=== PATIENT | male | born 1955 | race Caucasian/White ===

== ENCOUNTER → 2016-03-25 | Outpatient (CLI) | payer BC | LOC: GMAL 10:42 | PROVIDERS: ATTEND Family Medicine | DX: E03.9 Hypothyroidism, unspecified (principal); R25.8 Other abnormal involuntary movements; Z12.5 Encounter for screening for malignant neoplasm of prostate ==

== ENCOUNTER → 2016-07-22 | Outpatient (CLI) | payer BC | END | disposition home or self-care (01) | LOC: GMAL 10:20 | PROVIDERS: ATTEND Family Medicine | DX: Z00.00 Encounter for general adult medical examination without abnormal findings (principal) ==

== ENCOUNTER → 2016-09-02 | Outpatient (CLI) | payer BC | LOC: GMAL 08:00 | PROVIDERS: ATTEND Family Medicine | DX: D51.3 Other dietary vitamin B12 deficiency anemia (principal); D53.9 Nutritional anemia, unspecified ==

== ENCOUNTER → 2016-09-02 | Outpatient (CLI) | payer BC, SELFPAY ==
--- NOTE | 2016-09-03 09:14 | CT ---
EXAM DESCRIPTION: CT ABDOMEN WITHOUT AND WITH CONTRAST CLINICAL HISTORY: HEPATOSPLENOMEGALY COMPARISON: December 31, 2010. TECHNIQUE: CT of the abdomen is performed prior to and during IV bolus administration of nonionic contrast. Oral contrast enhancement was not utilized MPR reformatted images obtained This exam was performed according to our departmental dose-optimization program, which includes automated exposure control, adjustment of the mA and/or kV according to patient size and/or use of iterative reconstruction technique. FINDINGS: CT of the abdomen only before and after contrast enhancement was performed and correlated with remote prior study. The lung bases are essentially clear but slightly coarsened markings in the left posterior costophrenic angle that is little changed from 2011 study. The spleen is 14 cm in length consistent with moderate splenomegaly but without focal lesion or mass. The liver is 17 cm in length consistent with mild hepatomegaly without focal mass and with little change from prior study. The umbilical vein in the ligamentum teres appears recanalized suggesting the possibility of very subtle changes of increased portal pressure or early cirrhosis of the liver. No ascites is noted. Recanalized portal vein represents a new finding from previous 2011 examination area esophageal or short gastric or spleen no renal of varices are not identified. On contrast enhanced examination the portal vein is patent as well as the hepatic veins. Gallbladder is normally distended without ductal dilation and the pancreas is normal. The kidneys are normal on noncontrast and contrast enhanced examination without hydronephrosis or mass or cyst. Retroperitoneum is normal in appearance with no aortic or vena caval abnormality or adenopathy. A small right-sided umbilical or periumbilical fat-containing hernia is noted and unchanged in retrospect in comparison to prior study. The stomach and small bowel and visualized portions of the large bowel are unremarkable. Modest degenerative changes in the mid lumbar spine are noted. IMPRESSION: 1. Moderate splenomegaly and mild hepatomegaly with mild fatty infiltration of the liver, all unchanged from 2011 study. 2. Recanalized and mildly prominent umbilical vein extending through the ligamentum teres into the umbilicus combined with very subtle irregularity of the liver margin raise the possibility of early changes of portal hypertension and cirrhosis without additional varices or ascites identified. The portal and hepatic veins are patent. No focal masses are noted. 3. Small right-sided fat-containing umbilical or periumbilical hernia, unchanged 2011. Electronically signed by: Beni Craft MD 09/03/2016 9:13 AM CDT
== END | disposition home or self-care (01) ==
LOC: CT 16:00
PROVIDERS: ATTEND Internal Medicine Hematology & Oncology
DX: D51.3 Other dietary vitamin B12 deficiency anemia (principal); D53.9 Nutritional anemia, unspecified

== ENCOUNTER → 2016-10-14 | Outpatient (CLI) | payer BC | END | disposition home or self-care (01) | LOC: GMAL 17:22 | PROVIDERS: ATTEND Family Medicine | DX: D50.8 Other iron deficiency anemias (principal) ==

== ENCOUNTER → 2017-02-10 | Outpatient (CLI) | payer BC | LOC: GMAL 22:53 | PROVIDERS: ATTEND Family Medicine | DX: E03.9 Hypothyroidism, unspecified (principal) ==

== ENCOUNTER → 2017-04-28 | Outpatient (CLI) | payer BC | LOC: GMAL 10:26 | PROVIDERS: ATTEND Family Medicine | DX: Z12.5 Encounter for screening for malignant neoplasm of prostate (principal) ==

== ENCOUNTER → 2017-08-18 | Outpatient (CLI) | payer BC | LOC: GMAL 11:37 | PROVIDERS: ATTEND Family Medicine | DX: D51.3 Other dietary vitamin B12 deficiency anemia (principal); E55.9 Vitamin D deficiency, unspecified ==

== ENCOUNTER 2017-11-14 05:29 | Day surgery (SDC) | payer BC ==
--- NOTE | 2017-10-28 19:50 | SSS ---
CHIEF COMPLAINT: Family history of colon cancer in his brother. HISTORY OF PRESENT ILLNESS: Mr. Mena is a 62 year-old male with type 2 diabetes, hypothyroidism, obstructive sleep apnea, family history of colon cancer in a brother, nephrolithiasis and gastroesophageal reflux disease who presented to my office for routine followup. It was noted that he had a colonoscopy in 2012 and was due for followup given a family history of a brother who had colon cancer diagnosed at age 58. Risks and benefits were discussed and he is agreeable with proceeding. He has no symptoms referable to his bowels, specifically no abdominal pain, changes in his bowel habits or blood in his stool. PAST MEDICAL HISTORY: As above. 1. Nuclear stress test in April 2015 that showed a perfusion defect of anterior wall. His cardiac cath as as above. PAST SURGICAL HISTORY: 1. Appendectomy at age 15. 2. Left rotator cuff surgery. 3. Right knee scope by Dr. Muniz in June 2009. 4. Cardiac catheterization by Dr. Rodriguez that showed distal apical LAD was a small vessel of moderate disease, but otherwise minimal diffuse disease on 07/11/15. 5. Colonoscopy by this physician as above that showed only a hyperplastic polyp in his transverse colon. He had cecal lesion that was biopsied that was "unremarkable colonic mucosa." The cecum was difficult to visualize. CURRENT MEDICATIONS: 1. Trulicity pen. 2. Lipitor. 3. Bumetanide. 4. Metformin. 5. Levothyroxine. 6. Bystolic. 7. Nexium. ALLERGIES: NONE. FAMILY HISTORY: Father at 50 from emphysema. Mother has hypertension with a history of colon polyps. He had 1 brother, Franco, who has reflux, hypertension and history of colon cancer diagnosed at age 58. He has a sister, Oanh, who from a myocardial infarction at 55 and also had hypertension and diabetes. He has 2 sons, Fer and Sandeep, both healthy. SOCIAL HISTORY: He is a maintenance mechanic telephone. His is and has 2 children. He drinks alcohol very infrequently. He does use snuff. REVIEW OF SYSTEMS: Negative except as per History of Present Illness. PHYSICAL EXAMINATION: VITAL SIGNS: Height 5' 9", weight 270. Blood pressure 124/70, pulse 74. GENERAL: He is awake and alert in no acute distress. HEENT: Unremarkable. NECK: Supple. CHEST: Lungs are clear. CARDIOVASCULAR: Regular rate and rhythm. ABDOMEN: Obese but benign. EXTREMITIES: Without edema. RECTAL: Deferred until time of colonoscopy. ASSESSMENT: 1. Family history of colon cancer. PLAN: Coloscopy on 11/03/17. #[id number] [facility]
[2017-11-14] MEDS ORDERED: LACTATED RINGERS 1,000 ML ONE (05:58)
[2017-11-14] MEDS ORDERED: MIDAZOLAM INJ 2 MG/2 ML VIAL ONE (06:36)
[2017-11-14] MEDS ORDERED: fentaNYL CITRATE INJ 50 MCG/ML AMP ONE (06:36)
[2017-11-14] MEDS ORDERED: PROPOFOL 200 MG/20 ML VIAL IV ONE (07:00)
[2017-11-14] MEDS ORDERED: LIDOCAINE 1% 10 ML VIAL INJ ONE (07:00)
[2017-11-14 08:27] VITALS: BP 92/53; TEMP 97.8; O2SAT 94
--- NOTE | 2017-11-14 09:02 | OP ---
DATE OF PROCEDURE: 11/14/17 PREOPERATIVE DIAGNOSIS: 1. History of colonic polyps. POSTOPERATIVE DIAGNOSIS: 1. 0.5 by 0.25 cm proximal transverse colonic polyp, biopsied times 4 to obliteration. 2. Internal hemorrhoids. 3. Prominent ileocecal valve. PROCEDURE: 1. Colonoscopy. SURGEON: Troy Gold MD. ESTIMATED BLOOD LOSS: Less than 1 mL. COMPLICATIONS: No immediate complications. ANESTHESIA: Fentanyl 1 mL, Versed 1 mg, propofol e00 mg administered intravenously via Chilango Lincoln CRNA. TECHNIQUE: After informed consent was obtained from the patient, the patient was taken to the Endoscopy Suite and placed in the left lateral decubitus position. Incremental doses of fentanyl, Versed and propofol were given until adequate sedation was obtained. Digital rectal examination was performed, which showed a small, non-nodular prostate. The colonoscope was then advanced into the patient's rectum and up through the sigmoid, descending, transverse and ascending colon to the level of the cecum. The terminal ileum was entered. Overall, his bowel prep was quite good. The colonoscope was then slowly withdrawn, taking great care to visualize all valle of the colon in 360 degree fashion as well as possible. In the proximal transverse colon or perhaps the distal ascending colon, a 0.5 by 0.25 cm colonic polyp was noted and biopsied times 4 to presumed obliteration. No other abnormalities were noted throughout the entire colon until retroflexion revealed some internal hemorrhoids. Air was suctioned out of the patient's rectum after the scope was unretroflexed and he was taken back to the recovery area in good condition. PLAN: Repeat colonoscopy probably in 5 years. #[id number] [facility]
== END 2017-11-14 08:45 | disposition home or self-care (01) ==
LOC: AMB 05:29
PROVIDERS: ATTEND Family Medicine
DX: Z12.11 Encounter for screening for malignant neoplasm of colon (principal); D12.3 Benign neoplasm of transverse colon; K64.8 Other hemorrhoids; I10 Essential (primary) hypertension; I25.10 Atherosclerotic heart disease of native coronary artery without angina pectoris; E11.9 Type 2 diabetes mellitus without complications; E03.9 Hypothyroidism, unspecified; G47.33 Obstructive sleep apnea (adult) (pediatric); K21.9 Gastro-esophageal reflux disease without esophagitis; E66.9 Obesity, unspecified; Z80.0 Family history of malignant neoplasm of digestive organs; Z86.010 Personal history of colon polyps; Z79.84 Long term (current) use of oral hypoglycemic drugs; Z79.899 Other long term (current) drug therapy
CPT/HCPCS: 00812; 36415; 45380; 82948; J2250; J3010; J3490; J7120

== ENCOUNTER → 2018-03-25 | Outpatient (CLI) | payer BC | LOC: GMAL 12:36 | PROVIDERS: ATTEND Family Medicine | DX: E55.9 Vitamin D deficiency, unspecified (principal) ==

== ENCOUNTER → 2019-04-19 | Outpatient (CLI) | payer BC ==
--- NOTE | 2019-04-19 22:34 | MRI ---
Study: MRI of the Right Knee. Indication: KNEE PAIN Technique: Multiplanar, multi sequence MRI of the right knee was obtained without intravenous contrast. Comparison: None. Findings: Pronounced mucoid degeneration and intrasubstance cystic change ACL with mild changes PCL. 15 mm loose body posterior to the PCL. Both the MCL and FCL are slightly thickened and lax with mild increased internal PD signal. In addition, there is mild thickening of the distal IT band. These findings can be seen in the setting of the osteoarthritic knee. No acute tear defect of the medial or lateral collateral structures. Irregular high-grade radial tearing and attenuation posterior root attachment medial meniscus but without complete transection. Body extruded by 4 mm with displacement of its undersurface into the meniscotibial gutter. Severe medial compartment osteoarthritis with complete grade 4 chondral loss and pronounced cortical remodeling. Subtle free edge fraying posterior horn lateral meniscus. Patchy grade 3 chondrosis central to medial weightbearing margins of the lateral compartment. Low-grade tendinosis quadriceps tendon insertion. Patellar tendon intact. Patella normally located. Heterogeneous grade 2 and 3 chondrosis of the medial and midline aspects of the patellofemoral compartment. Moderate size knee effusion. Mild thickening medial patellar. No acute fracture. Tiny Whaley's cyst. Impression: Moderate mucoid degeneration ACL with intrasubstance cystic change. Mild mucoid degeneration PCL. Irregular radial tearing and attenuation posterior horn/root medial meniscus. Scattered degenerative signal lateral meniscus with free edge fraying posterior horn. Tricompartmental osteoarthritis, most pronounced at the medial compartment where there are severe changes and complete grade 4 chondral loss as well as pronounced cortical remodeling. Moderate size knee effusion with a 15 mm loose body posterior to the PCL. Electronically signed by: Mckinley Salazar MD 04/19/2019 10:32 PM [facility]
== END ==
LOC: MRI 11:45
PROVIDERS: ATTEND Family Medicine
DX: S83.241A Other tear of medial meniscus, current injury, right knee, initial encounter (principal); M17.11 Unilateral primary osteoarthritis, right knee; M94.8X6 Other specified disorders of cartilage, lower leg; M25.461 Effusion, right knee

== ENCOUNTER → 2019-04-30 | Outpatient (CLI) | payer BC ==
--- NOTE | 2019-05-02 17:04 | RAD ---
EXAM: Pelvis and hip CLINICAL HISTORY: Pain COMPARISON STUDY: None TECHNICAL: AP pelvis FINDINGS: The pelvic ring is intact and negative. Both hips are in anatomic alignment. There is no identifiable fracture. There is no osseous abnormality. There are no significant degenerative changes. IMPRESSION: Negative pelvis. Electronically signed by: Jerald Bassett MD 05/02/2019 5:03 PM [facility]
--- NOTE | 2019-05-03 08:01 | RAD ---
EXAM DESCRIPTION: Knee,Right 1 or 2 Views CLINICAL HISTORY: KNEE PAIN COMPARISON: None. TECHNIQUE: AP and sunrise right FINDINGS: Marked loss of medial joint space is observed. Patellofemoral joint arthritis is also observed. IMPRESSION: Degenerative changes are observed most pronounced the medial joint compartment. Electronically signed by: Troy Mendoza MD 05/03/2019 8:00 AM [facility]
== END ==
LOC: RAD 10:26
PROVIDERS: ATTEND Orthopaedic Surgery
DX: M17.11 Unilateral primary osteoarthritis, right knee (principal); M25.551 Pain in right hip

== ENCOUNTER → 2019-07-27 | Outpatient (CLI) | payer BC | LOC: LAB.O 14:28 | PROVIDERS: ATTEND Orthopaedic Surgery | DX: Z01.818 Encounter for other preprocedural examination (principal) ==

== ENCOUNTER → 2019-08-17 | Day surgery (SDC) | payer BC ==
--- NOTE | 2019-08-13 12:33 | RAD ---
Procedure: XR CHEST 2 VIEWS Exam Date: 08/13/2019 Ordering Provider: Eyal Pandya Clinical Indication: prep Comparison: 05/21/2019 Findings: Cardiomediastinal silhouette is within normal limits. No focal lung consolidation. No pleural effusion. No pneumothorax. No acute osseous abnormality. Impression: 1. No acute abnormality in the chest. Electronically signed by: Jony Benavidez MD 08/13/2019 12:32 PM CDT
== END ==
LOC: AMB 05:45
PROVIDERS: ATTEND Orthopaedic Surgery
DX: M17.11 Unilateral primary osteoarthritis, right knee (principal); E11.9 Type 2 diabetes mellitus without complications; K21.9 Gastro-esophageal reflux disease without esophagitis; G47.33 Obstructive sleep apnea (adult) (pediatric); D50.9 Iron deficiency anemia, unspecified; E03.9 Hypothyroidism, unspecified; Z53.9 Procedure and treatment not carried out, unspecified reason; Z79.899 Other long term (current) drug therapy

== ENCOUNTER → 2019-09-27 | Outpatient (CLI) | payer BC | LOC: LAB.O 11:22 | PROVIDERS: ATTEND Orthopaedic Surgery | DX: Z01.818 Encounter for other preprocedural examination (principal) ==

== ENCOUNTER → 2019-11-08 | Outpatient (CLI) | payer BC | END | disposition home or self-care (01) | LOC: LAB.O 09:07 | PROVIDERS: ATTEND Orthopaedic Surgery | DX: Z01.818 Encounter for other preprocedural examination (principal) ==

== ENCOUNTER → 2019-11-08 | Outpatient (CLI) | payer BC | END | disposition home or self-care (01) | LOC: GMAL 15:42 | PROVIDERS: ATTEND Family Medicine | DX: R30.0 Dysuria (principal) ==

== ENCOUNTER → 2019-11-18 | Outpatient (CLI) | payer BC | LOC: GMAL 16:36 | PROVIDERS: ATTEND Family Medicine | DX: Z79.01 Long term (current) use of anticoagulants (principal) ==

== ENCOUNTER 2019-12-07 05:35 | Inpatient (IN) | payer BC ==
[2019-12-07] MEDS ORDERED: SODIUM CHLORIDE 0.9% 250ML 250 ML ONE (05:41)
[2019-12-07] MEDS ORDERED: SODIUM CHLORIDE 0.9% (FLUSH) 10 ML SYG ONE (05:41)
[2019-12-07] MEDS ORDERED: SODIUM CHL 0.9% 100ML MINI-BAG 100 ML IVPB ONE (05:41)
[2019-12-07] MEDS ORDERED: LACTATED RINGERS 1,000 ML ONE (05:41)
[2019-12-07] MEDS ORDERED: ceFAZolin SODIUM 1 GM VIAL ONE ×2 (05:41→06:25)
[2019-12-07] MEDS ORDERED: SODIUM CHLORIDE 0.9% 100ML 100 ML IVPB ONE (05:41)
[2019-12-07] MEDS ORDERED: VANCOMYCIN HCL INJ 1,000 MG VIAL IVPB ONE ×4 (05:42→16:58)
[2019-12-07] MEDS ORDERED: BUPIVACAINE LIPOSOME 13.3 MG/ML VIAL INJ ONE ×2 (06:25→07:13)
[2019-12-07] MEDS ORDERED: BUPIVACAINE 0.5% 30 ML VIAL INJ ONE ×3 (06:25→07:34)
[2019-12-07] MEDS ORDERED: KETAMINE HCL 100 MG/ML VIAL ONE (06:34)
[2019-12-07] MEDS ORDERED: ROCURONIUM BROMIDE 10 MG/ML VIAL ONE (06:34)
[2019-12-07] MEDS ORDERED: MIDAZOLAM INJ 5 MG/5 ML VIAL ONE (06:34)
[2019-12-07] MEDS ORDERED: SUGAMMADEX SODIUM 200 MG/2 ML VIAL IV ONE (06:34)
[2019-12-07] MEDS ORDERED: DEXMEDETOMIDINE HCL 200 MCG/2 ML INJ IV ONE (06:34)
[2019-12-07] MEDS ORDERED: HYDROmorphone HCL INJ 2 MG/ML VIAL ONE (06:34)
[2019-12-07] MEDS ORDERED: FAMOTIDINE 10 MG/ML ML IV ONE (06:35)
[2019-12-07] MEDS ORDERED: LACTATED RINGERS 1,000 ML IVS ONE (07:04)
[2019-12-07] MEDS ORDERED: ceFAZolin SODIUM 1 GM VIAL IRRIG ONE (07:13)
[2019-12-07] MEDS: TRANEXAMIC ACID 1,000 MG/10 ML VIAL ONE ×2 (07:41→09:51)
[2019-12-07] MEDS ORDERED: ELECTROLYTE-A 1,000 ML IVS ONE ×2 (08:41→09:15)
[2019-12-07] MEDS ORDERED: BENZOCAINE-MENTH LOZ (CEPACOL) 1 EA LOZ MT PRN (10:03)
[2019-12-07] MEDS ORDERED: DEX 5% W/NACL 0.45% 1000ML 1,000 ML IVS PRN (10:03)
[2019-12-07] MEDS ORDERED: MORPHINE SULFATE INJ 10 MG/ML VIAL IV PRN (10:03)
[2019-12-07] MEDS ORDERED: BISACODYL SUPPOSITORY 10 MG PR PRN (10:03)
[2019-12-07] MEDS ORDERED: PROMETHAZINE HCL INJ 12.5 MG in SODIUM CHLORIDE 0.9% 50ML 50 ML IVPB PRN (10:03)
[2019-12-07] MEDS ORDERED: PROMETHAZINE HCL INJ 25 MG in SODIUM CHLORIDE 0.9% 50ML 50 ML IVPB PRN (10:03)
[2019-12-07] MEDS ORDERED: ZOLPIDEM TARTRATE 5 MG TAB PO PRN (10:03)
[2019-12-07] MEDS ORDERED: ACETAMINOPHEN 325 MG TAB PO PRN (10:03)
[2019-12-07] MEDS ORDERED: ONDANSETRON INJ 4 MG/2 ML VIAL IV PRN (10:03)
[2019-12-07] MEDS ORDERED: ALUMINUM & MAGNESIUM HYDROXIDE 30 ML UD PO PRN (10:03)
[2019-12-07] MEDS ORDERED: TRANEXAMIC ACID INJ 1,000 MG in SODIUM CHLORIDE 0.9% 100ML 100 ML IVPB ONE (10:03)
[2019-12-07] MEDS ORDERED: MORPHINE SULFATE INJ 10 MG/ML VIAL IM PRN (10:03)
[2019-12-07] MEDS ORDERED: TEMAZEPAM 15 MG CAP PO PRN (10:03)
[2019-12-07] MEDS ORDERED: SODIUM CHLORIDE 0.9% (FLUSH) 10 ML SYG IV PRN (10:03)
[2019-12-07] MEDS ORDERED: NALOXONE HCL INJ 0.4 MG/ML VIAL IV PRN (10:03)
[2019-12-07] MEDS ORDERED: MAGNESIUM HYDROXIDE 30 ML UD PO PRN (10:03)
[2019-12-07] MEDS ORDERED: CADD ADMIN SET 1 EA PKG INJ ONE (10:20)
[2019-12-07] MEDS ORDERED: MORPHINE PCA 1 MG/ML 100 ML BAG IVPB ONE (10:30)
[2019-12-07] MEDS ORDERED: MORPHINE PCA 1 MG/ML 100 ML BAG IVPB SCH (10:30)
--- NOTE | 2019-12-07 11:05 | RAD ---
EXAM DESCRIPTION: Fluoroscopy Up to 1Hr CLINICAL HISTORY: 64 years Male, RIGHT TOTAL KNEE COMPARISON: Right knee radiographs 04/30/2019.. IMPRESSION: Multiple intraoperative fluoroscopic images saved for the benefit of the surgeon. Operative changes of right knee arthroplasty. Please see procedure report for full details. Fluoroscopy time: 4.5 seconds Fluoroscopic images: 1 Total dose: 1.41 mGy Electronically signed by: Beto Nayak MD 12/07/2019 11:04 AM CDT
--- NOTE | 2019-12-07 13:02 | RAD ---
EXAM DESCRIPTION: Knee,Right 1 or 2 Views CLINICAL HISTORY: 64 years Male, TKA COMPARISON: Right knee radiographs 04/30/2019 TECHNIQUE: 2 view radiograph of the right knee. IMPRESSION: Status post total right knee arthroplasty. Patellar resurfacing. Expected postoperative joint effusion. Imaged hardware appears normal in alignment and intact without fracture. No periprosthetic lucency is present to indicate hardware loosening. Postsurgical changes noted in the overlying soft tissues. Electronically signed by: Beto Nayak MD 12/07/2019 1:00 PM CDT
--- NOTE | 2019-12-07 13:13 | CONS ---
SUPERVISING PHYSICIAN: Eliezer Loyd MD DATE OF CONSULTATION: 12/07/19 REASON FOR CONSULTATION: Medical management. HISTORY OF PRESENT ILLNESS: This is a 64-year-old male patient who has had right knee osteoarthritis for many years. He has undergone conservative management without any significant improvement and, therefore, was offered total knee arthroplasty as a solution. Today, he underwent right total knee arthroplasty with no intraoperative complications. He returned to the Medical/Surgical Unit in stable condition and in no distress. At time of examination, the patient is drowsy from anesthesia, but awakens easily and follows commands. He complains of at little bit of pain, but mainly controlled at this time. PAST MEDICAL HISTORY: 1. Coronary artery disease. 2. Hypertension. 3. Gastroesophageal reflux disease. 4. Hypothyroidism. 5. Diabetes mellitus. 6. Hyperlipidemia. 7. Obesity. PAST SURGICAL HISTORY: 1. Colonoscopy. 2. Cardiac catheterization. 3. Appendectomy. 4. Left rotator cuff surgery. 5. Right knee arthroscopy. MEDICATIONS: Please see med rec list once verified in the computer. ALLERGIES: NO KNOWN DRUG ALLERGIES. FAMILY HISTORY: His father at age 50 from emphysema. Mother has hypertension, colonic polyps. One brother has reflux, hypertension, history of colon cancer. One sister of a myocardial infarction. SOCIAL HISTORY: He is and has two children. Occasional use of alcohol. He uses snuff. No illegal drugs. REVIEW OF SYSTEMS: Negative except for right knee pain. PHYSICAL EXAMINATION: VITAL SIGNS: Blood pressure 136/74, heart rate 58, respiratory rate 16, temperature 97.4, oxygen saturation 94%. GENERAL: Mr. Mena is a 64-year-old male patient in no active distress currently. NEUROLOGIC: The patient is drowsy, but awakens to voice. No focal deficits. LUNGS: Clear to auscultation bilaterally. CARDIOVASCULAR: Regular rate and rhythm. Normal S1, S2. ABDOMEN: Soft, obese. Positive bowel sounds. EXTREMITIES: Lower extremities with pulses 2+. Capillary refill is less than 2 seconds. Right leg is wrapped in an Marcos and ice pack. IMPRESSION: 1. Right knee osteoarthritis status post right total knee arthroplasty, postoperative day 0. 2. Hypertension. 3. Hyperlipidemia. 4. Diabetes mellitus, type 2. 5. Hypothyroidism. PLAN: The patient will be admitted to the Medical/Surgical Unit with physical therapy postoperatively as well as pain control. We will continue to monitor his need for physical therapy while he is here to be able to determine discharge planning. We will resume his home medications once they are verified in the computer. Anticoagulation will be started approximately 12 hours after surgical intervention. #[id number] [facility]
[2019-12-07] MEDS ORDERED: DEXTROSE 50% 25 GM/50 ML SYG IV PRN (15:01)
[2019-12-07] MEDS ORDERED: GLUCAGON INJ 1 MG VIAL SUBCU PRN (15:01)
[2019-12-07] MEDS ORDERED: diphenhydrAMINE HCL 50 MG/ML VIAL IV ONE (15:54)
[2019-12-07] MEDS ORDERED: ONDANSETRON INJ 4 MG/2 ML VIAL IV ONE (15:54)
[2019-12-07] MEDS ORDERED: LIDOCAINE 1% 10 ML VIAL INJ ONE (15:54)
[2019-12-07] MEDS ORDERED: MAGNESIUM SULFATE INJ 1 GM/2 ML VIAL IVPB ONE (15:54)
[2019-12-07] MEDS ORDERED: SODIUM CHLORIDE 0.9% 50 ML VIAL INJ ONE (15:54)
[2019-12-07] MEDS ORDERED: DEXAMETHASONE INJ 10 MG/ML VIAL IV ONE (15:54)
[2019-12-07] MEDS ORDERED: PROPOFOL 200 MG/20 ML VIAL IV ONE (15:54)
[2019-12-07] MEDS: IV SET AND CAP CHANGE INJ INJ SCH (16:23)
[2019-12-07] MEDS: ceFAZolin SODIUM 2 GM in SODIUM CHLORIDE 0.9% 100ML 100 ML IVPB SCH (16:23)
[2019-12-07] MEDS: CELECOXIB 100 MG CAP PO SCH (16:24)
[2019-12-07] MEDS: INSULIN LISPRO 100 UNITS/ML PEN SUBCU SCH ×2 (16:25→21:34)
[2019-12-07] MEDS ORDERED: SODIUM CHL 0.9% 250ML (AVIVA) 250 ML IVPB ONE (16:58)
[2019-12-07] MEDS: VANCOMYCIN HCL INJ 1,000 MG in SODIUM CHLORIDE 0.9% 250ML 250 ML IVPB SCH (17:06)
[2019-12-07] MEDS: OMEPRAZOLE CAP 20 MG CAP PO SCH (20:05)
[2019-12-07] MEDS: MAGNESIUM OXIDE 400 MG TAB PO SCH (20:05)
[2019-12-07] MEDS: ATORVASTATIN 20 MG TAB PO SCH (20:05)
[2019-12-07] MEDS: DOCUSATE CALCIUM 240 MG CAP PO SCH (20:05)
[2019-12-07] MEDS ORDERED: SODIUM CHLORIDE 0.45% 1000ML 1,000 ML IVS PRN (20:32)
[2019-12-07] MEDS: HYDROcodone 10MG/APAP 325MG 1 EA TAB PO PRN (20:50)
[2019-12-07] MEDS: ENOXAPARIN SODIUM 30 MG/0.3 ML SYG SUBCU SCH (22:37)
[2019-12-07] MEDS: CYCLOBENZAPRINE HCL 10 MG TAB PO PRN (22:37)
[2019-12-08] MEDS: ceFAZolin SODIUM 2 GM in SODIUM CHLORIDE 0.9% 100ML 100 ML IVPB SCH ×2 (00:17→10:06)
[2019-12-08] MEDS: traMADol HCL 50 MG TAB PO PRN ×3 (00:38→12:44)
[2019-12-08] MEDS ORDERED: LEVOTHYROXINE SODIUM 0.1 MG TAB ONE (04:05)
[2019-12-08] MEDS ORDERED: LEVOTHYROXINE SODIUM 0.025 MG TAB ONE (04:05)
[2019-12-08] MEDS: HYDROcodone 10MG/APAP 325MG 1 EA TAB PO PRN ×3 (04:14→17:08)
[2019-12-08] MEDS: VANCOMYCIN HCL INJ 1,000 MG in SODIUM CHLORIDE 0.9% 250ML 250 ML IVPB SCH (05:50)
[2019-12-08] MEDS: LEVOTHYROXINE SODIUM 0.1 MG, LEVOTHYROXINE SODIUM 0.025 MG PO SCH ×2 (05:51)
[2019-12-08] MEDS: CYCLOBENZAPRINE HCL 10 MG TAB PO PRN (05:51)
[2019-12-08] MEDS: INSULIN LISPRO 100 UNITS/ML PEN SUBCU SCH ×4 (07:21→21:33)
[2019-12-08] MEDS: CELECOXIB 100 MG CAP PO SCH ×2 (07:25→17:07)
[2019-12-08] MEDS ORDERED: NON-FORMULARY MEDICATION 1 EA MIS (Levothyroxine Sodium [Synthroid] 125 MCG) PO SCH (09:00)
--- NOTE | 2019-12-08 09:13 | PN ---
SUPERVISING PHYSICIAN: Eliezer Lody MD DATE: 12/08/19 SUBJECTIVE: The patient states he is having some pain in his knee, but it is fairly well controlled. He just got a pain pill about 20 minutes ago. He used the CPM device last night he states from 2 to 10. OBJECTIVE: VITAL SIGNS: Blood pressure 131/67, heart rate 63, respiratory rate 18, temperature 98.1, oxygen saturation 96%. GENERAL: Mr. Mena is a 64-year-old male patient in no active distress. NEUROLOGIC: The patient is alert. LUNGS: Clear. CARDIOVASCULAR: Regular rate and rhythm. Normal S1, S2. ABDOMEN: Soft, obese. Positive bowel sounds. EXTREMITIES: Lower extremities with no edema. Pulses 2+. Capillary refill is less than 2 seconds. Right leg is still wrapped in an Marcos with ice in place as well. LABORATORY: Normal white count, hemoglobin 11.4, hematocrit 32.1, platelet count 85. Chemistry unremarkable. ASSESSMENT: 1. Right knee osteoarthritis status post right total knee arthroplasty, postoperative day 1. 2. Hypertension. 3. Hyperlipidemia. 4. Diabetes mellitus, type 2. 5. Hypothyroidism. 6. Thrombocytopenia. PLAN: We will continue anticoagulation and pain control along with physical therapy today. We will continue to monitor his progression to assess for discharge planning. Regarding thrombocytopenia, he is showing no sign of bleeding. Will continue to monitor. #[id number] [facility]
[2019-12-08] MEDS: MAGNESIUM OXIDE 400 MG TAB PO SCH ×2 (10:06→21:33)
[2019-12-08] MEDS: BUMETANIDE TAB 2 MG TAB PO SCH (10:06)
[2019-12-08] MEDS: ENOXAPARIN SODIUM 30 MG/0.3 ML SYG SUBCU SCH ×2 (10:06→20:30)
[2019-12-08] MEDS: NEBIVOLOL 2.5 MG TAB PO SCH (10:06)
--- NOTE | 2019-12-08 11:48 | PN ---
DATE: 12/08/19 SUBJECTIVE: Frank is doing well. His pain well controlled right now. OBJECTIVE: Afebrile. Vital signs stable. Dressing is clean, dry and intact. ASSESSMENT: Status post total knee arthroplasty. PLAN: The plan is to begin weightbearing as tolerated on postoperative day 1. #[id number] [facility]
[2019-12-08] MEDS: FERROUS SULFATE 325 MG TAB PO SCH (14:08)
[2019-12-08] MEDS: CYANOCOBALAMIN 1,000 MCG TAB PO SCH (14:08)
[2019-12-08] MEDS: CHOLECALCIFEROL 2,000 IU TAB PO SCH (14:08)
[2019-12-08] MEDS ORDERED: ENOXAPARIN SODIUM 40 MG/0.4 ML SYG SUBCU ONE (21:15)
[2019-12-08] MEDS: OMEPRAZOLE CAP 20 MG CAP PO SCH (21:32)
[2019-12-08] MEDS: ATORVASTATIN 20 MG TAB PO SCH (21:32)
[2019-12-08] MEDS: DOCUSATE CALCIUM 240 MG CAP PO SCH (21:32)
[2019-12-09] MEDS: HYDROcodone 10MG/APAP 325MG 1 EA TAB PO PRN ×3 (05:55→14:28)
[2019-12-09] MEDS: LEVOTHYROXINE SODIUM 0.1 MG, LEVOTHYROXINE SODIUM 0.025 MG PO SCH ×2 (05:55)
[2019-12-09] MEDS: INSULIN LISPRO 100 UNITS/ML PEN SUBCU SCH ×4 (08:10→21:11)
[2019-12-09] MEDS: CELECOXIB 100 MG CAP PO SCH ×2 (09:08→17:27)
[2019-12-09] MEDS: NEBIVOLOL 2.5 MG TAB PO SCH (09:09)
[2019-12-09] MEDS: MAGNESIUM OXIDE 400 MG TAB PO SCH ×2 (09:10→20:44)
[2019-12-09] MEDS: BUMETANIDE TAB 2 MG TAB PO SCH (09:10)
[2019-12-09] MEDS: SODIUM CHLORIDE 0.9% (FLUSH) 10 ML SYG IV SCH ×2 (09:12→20:44)
[2019-12-09] MEDS: CYCLOBENZAPRINE HCL 10 MG TAB PO PRN ×2 (09:23→17:27)
[2019-12-09] MEDS: ENOXAPARIN SODIUM 30 MG/0.3 ML SYG SUBCU SCH ×2 (10:31→22:52)
[2019-12-09] MEDS: CHOLECALCIFEROL 2,000 IU TAB PO SCH (12:29)
[2019-12-09] MEDS: FERROUS SULFATE 325 MG TAB PO SCH (12:29)
[2019-12-09] MEDS: CYANOCOBALAMIN 1,000 MCG TAB PO SCH (12:29)
[2019-12-09] MEDS: traMADol HCL 50 MG TAB PO PRN (13:22)
--- NOTE | 2019-12-09 13:38 | PN ---
SUPERVISING PHYSICIAN: Eliezer Loyd MD DATE: 12/09/19 SUBJECTIVE: The patient seems to be doing well. His pain is well controlled. He is not having any further complaints. He has been utilizing a CPM. OBJECTIVE: VITAL SIGNS: Temperature 98.9, pulse 66, blood pressure 131/65, respirations 20, oxygen saturation 94% on room air. GENERAL: The patient is resting comfortably. He does not appear to be in any distress. He sitting in the bedside chair. He just finished with physical therapy. CHEST: Lungs are clear to auscultation. HEART: Regular rate and rhythm. ABDOMEN: Soft, nontender. Positive bowel sounds. EXTREMITIES: No edema. Right leg has dressing in place which is clean and dry with Iceman. Distal pulses are strong. Capillary refill is brisk. LABORATORY: Blood sugars are ranging between 133 and 181. ASSESSMENT: 1. Right knee osteoarthritis status post right total knee arthroplasty, postoperative day 2. 2. Hypertension. 3. Hyperlipidemia. 4. Diabetes mellitus, type 2. 5. Hypothyroidism. 6. Thrombocytopenia. PLAN: We will continue with current plan of care. We will monitor the patient as he progresses through his rehabilitation with physical therapy. He is doing well with anticipation of discharging tomorrow with rehab through [facility] for which plans are in process at this point. In regards to thrombocytopenia, we will continue to monitor. There are no complicating signs of any bleeding. He does remain on Lovenox. Until the patient can transition to outpatient management, we will continue to monitor and treat as needed. #[id number] [facility]
[2019-12-09] MEDS: DOCUSATE CALCIUM 240 MG CAP PO SCH (20:43)
[2019-12-09] MEDS: ATORVASTATIN 20 MG TAB PO SCH (20:43)
[2019-12-09] MEDS: OMEPRAZOLE CAP 20 MG CAP PO SCH (20:43)
[2019-12-10] MEDS: HYDROcodone 10MG/APAP 325MG 1 EA TAB PO PRN ×2 (05:30→13:52)
[2019-12-10] MEDS: LEVOTHYROXINE SODIUM 0.1 MG, LEVOTHYROXINE SODIUM 0.025 MG PO SCH ×2 (06:07)
[2019-12-10] MEDS: INSULIN LISPRO 100 UNITS/ML PEN SUBCU SCH ×2 (07:06→11:41)
[2019-12-10] MEDS: SODIUM CHLORIDE 0.9% (FLUSH) 10 ML SYG IV SCH (08:02)
[2019-12-10] MEDS: NEBIVOLOL 2.5 MG TAB PO SCH (08:03)
[2019-12-10] MEDS: MAGNESIUM OXIDE 400 MG TAB PO SCH (08:03)
[2019-12-10] MEDS: CELECOXIB 100 MG CAP PO SCH (08:03)
--- NOTE | 2019-12-10 08:14 | OP ---
DATE OF PROCEDURE: 12/07/19 PREOPERATIVE DIAGNOSIS: 1. Right knee osteoarthritis. POSTOPERATIVE DIAGNOSIS: 1. Right knee osteoarthritis. PROCEDURE: 1. Right total knee arthroplasty. SURGEON: yEal Pandya MD. REDRYING MACHINE OPERATOR: Marcin High CST, SA-C. ANESTHESIA: General anesthesia. COMPLICATIONS: None. FINDINGS: Severe osteoarthritis of the knee. INDICATION: Mr. Mena has a history of severe knee pain that has been present for several years and has failed conservative measures. Because of the failure of conservative measures, he has requested operative intervention. After discussing the risks, benefits and alternatives to that, the patient has given informed consent for total knee arthroplasty. PROCEDURE: The patient was brought to the Operating Room and placed in supine position. General anesthesia was induced and the patient's leg was sterilely prepped and draped. Following prepping and draping, the distal femur was exposed and using an intramedullary guide, the distal femoral cut was made. The appropriate sized cutting block was measured, pinned into place, and the anterior, posterior, and chamfer cuts were made. The ACL was transected and the tibia was subluxed. Both the medial and lateral menisci were removed. An intramedullary guide was used to make the proximal tibial cut. The appropriate sized base plate was placed and a trial polyethylene was placed. The trial femur was placed, the knee was reduced, and the knee was taken through a range of motion. The knee was stable in anterior, posterior, varus and valgus stress. The patella tracked anatomically without evidence of subluxation or dislocation. After trialing, the trial components were removed and the bony surfaces were thoroughly irrigated with saline. Following irrigation, the surfaces were dried and the final components were cemented into place. The excess cement was removed and the remaining cement was allowed to cure. The knee was again taken through a range of motion to confirm stability. The wound was then irrigated with saline and closure was performed using PDS to approximate the arthrotomy followed by closure of the subcutaneous tissues with a combination of running and interrupted Monocryl sutures. Sterile dressing was placed. The patient was awoken from anesthesia and taken to Recovery. COMPONENTS: Nacho Triathlon knee, size 5 femur, size 5 tibia, 11 mm insert. POSTOPERATIVE PLAN: The patient will be weight-bearing as tolerated on postoperative day 1. #[id number] [facility]
[2019-12-10] MEDS: BUMETANIDE TAB 2 MG TAB PO SCH (09:25)
[2019-12-10] MEDS: ENOXAPARIN SODIUM 30 MG/0.3 ML SYG SUBCU SCH (11:45)
[2019-12-10] MEDS: FERROUS SULFATE 325 MG TAB PO SCH (11:46)
[2019-12-10] MEDS: CYANOCOBALAMIN 1,000 MCG TAB PO SCH (11:46)
[2019-12-10] MEDS: CHOLECALCIFEROL 2,000 IU TAB PO SCH (11:46)
[2019-12-10] MEDS: IV SET AND CAP CHANGE INJ INJ SCH (11:59)
[2019-12-10 13:42] VITALS: BP 115/62; TEMP 98.6; O2SAT 96
[2019-12-10] MEDS ORDERED: BISACODYL SUPPOSITORY 10 MG PR ONE (21:00)
[2019-12-10] MEDS ORDERED: MAGNESIUM HYDROXIDE 30 ML UD PO ONE (21:00)
--- NOTE | 2019-12-13 10:05 | DS ---
SUPERVISING PHYSICIAN: Eliezer Loyd MD ADMISSION DIAGNOSIS: 1. Right knee osteoarthritis status post right total knee arthroplasty, postoperative day 0. 2. Hypertension. 3. Hyperlipidemia. 4. Diabetes mellitus, type 2. 5. Hypothyroidism. DISCHARGE DIAGNOSIS: 1. Right knee osteoarthritis status post right total knee arthroplasty, postoperative day 3. 2. Hypertension. 3. Hyperlipidemia. 4. Diabetes mellitus, type 2. 5. Hypothyroidism. 6. Thrombocytopenia. REASON FOR HOSPITALIZATION: This is a 64-year-old male patient who has had right knee osteoarthritis for many years. He has undergone conservative management without any significant improvement and, therefore, was offered total knee arthroplasty as a solution. Today, he underwent right total knee arthroplasty with no intraoperative complications. He returned to the Medical/Surgical Unit in stable condition and in no distress. At time of examination, the patient is drowsy from anesthesia, but awakens easily and follows commands. He complains of at little bit of pain, but mainly controlled at this time. LABORATORY: Postoperative hemoglobin 11.4, hematocrit 32.1. White count 5,900 without a left shift. Chemistries showed blood sugars stable between 113 and 181. Platelet count 85,000. RADIOLOGY: Please see his pre and postoperative radiology reports for details. PROCEDURES: Right total knee arthroplasty performed by Dr. Eyal Pandya, orthopedic surgeon. Please his operative note for details. HOSPITAL COURSE: Mr. Mena was admitted for an elective right total knee arthroplasty. He had no intraoperative or postoperative complications. He did well with his physical therapy efforts and was found stable enough to continue with outpatient management and physical therapy rehabilitation as an outpatient through [facility] in [place]. DISCHARGE PHYSICAL ASSESSMENT: VITAL SIGNS: Temperature 98.6, pulse 60, blood pressure 115/62, respirations 16, saturation 96% on room air. GENERAL: The patient is resting comfortably. He did not appear to be in any distress. He is alert. CHEST: Clear to auscultation. HEART: Regular rate and rhythm. ABDOMEN: Soft, nontender. Positive bowel sounds. EXTREMITIES: Right knee had an island dressing in place which was clean and dry with no signs of drainage or redness. Distal pulses are strong. Capillary refill is brisk. NEUROLOGIC: Alert and oriented x3. PLAN: Mr. Mena was discharged on 12/10/19 with instructions to followup with Dr. Pandya. He will continue with his physical therapy through [facility]. Diet is to continue with diabetic diet as tolerated. Activities as per physical therapy. He is to utilize a walker. Wound management as per Dr. Pandya's postoperative management. He may shower, no tub bath. Prescriptions provided at discharge: 1. Xarelto 10 mg daily, #8. 2. Pain management per Dr. Pandya, prescription for [place]. DISPOSITION: The patient is discharged home to continue with outpatient management and physical therapy. CONDITION ON DISCHARGE: Stable and improved. [facility][id number] [facility]
[2019-12-14] MEDS ORDERED: DULAGLUTIDE 1.5 MG SC SCH (09:00)
== END 2019-12-10 15:08 | disposition home or self-care (01) | DRG 470 ==
LOC: AMB 05:35 → MS 10:40
PROVIDERS: ADMIT Orthopaedic Surgery; ATTEND Nurse Practitioner Family
PROC: 0SRC0J9 Replacement of Right Knee Joint with Synthetic Substitute, Cemented, Open Approach (ICD-10-PCS; principal; 2019-12-07 07:00)
DX: M17.11 Unilateral primary osteoarthritis, right knee (principal); I25.10 Atherosclerotic heart disease of native coronary artery without angina pectoris; I10 Essential (primary) hypertension; K21.9 Gastro-esophageal reflux disease without esophagitis; E03.9 Hypothyroidism, unspecified; E11.9 Type 2 diabetes mellitus without complications; E78.5 Hyperlipidemia, unspecified; E66.9 Obesity, unspecified; D69.6 Thrombocytopenia, unspecified; Z79.899 Other long term (current) drug therapy; Z68.38 Body mass index [BMI] 38.0-38.9, adult

== ENCOUNTER → 2020-01-05 | Outpatient (CLI) | payer BC | LOC: GMAL 10:42 | PROVIDERS: ATTEND Family Medicine | DX: Z12.5 Encounter for screening for malignant neoplasm of prostate (principal) ==